=== PATIENT | male | born 1965 | race Two or more races ===

== ENCOUNTER → 2016-10-20 | Outpatient (CLI) | payer OTHER ==
[~2016-10-20] MED LIST: IOPAMIDOL (ISOVUE-300) 100 ML BTL IV ONE
== END ==
LOC: FIMAGING 11:49
PROVIDERS: ATTEND Physician Assistant
DX: R31.0 Gross hematuria (principal); K40.90 Unilateral inguinal hernia, without obstruction or gangrene, not specified as recurrent
CPT/HCPCS: Q9967

== ENCOUNTER 2018-11-26 14:18 | Emergency (ER) | payer OTHER ==
[2018-11-26 14:29] VITALS: BP 120/88
[2018-11-26] MEDS ORDERED: CEPHALEXIN 500 MG CAP PO ONE (14:35)
--- NOTE | 2018-11-26 14:35 | EDPHY ---
H & P Time Seen by Provider: 11/26/18 14:20 HPI/ROS: CHIEF COMPLAINT: Right 4th digit crush injury HISTORY OF PRESENT ILLNESS: 53-year-old [id number] male with up-to- date tetanus, immunocompetent, complaining of crush injury to his right 4th digit distal phalanx when he was moving landscaping rocks and a rock crushed said digit. He is complaining of pain with palpation and range of motion. He complains of new swan neck deformity to digit. Occurred shortly prior to arrival PRIMARY CARE PROVIDER: REVIEW OF SYSTEMS: 10 systems reviewed and are negative with exception of illness mentioned in the history of present illness PHYSICAL EXAM (Prior to examination, patient consented to physical exam, hands were washed and my usual and customary physical exam procedures followed) 1) GENERAL: Well-developed, well-nourished, alert and oriented. Appears to be in no acute distress. 2) HEAD: Normocephalic 3) HEENT: sclera anicteric 4) LUNGS: Breathing comfortably. 5) SKIN: Right 4th digit distal phalanx laceration measuring 1.5 cm. 6) MUSCULOSKELETAL: [place] neck Deformity noted. This is new per the patient. 7) NEUROLOGIC: Decreased 2 point sensation distal to the injury Smoking Status: Former smoker Constitutional: Initial Vital Signs Temperature (C) 37.1 C 11/26/18 14:25 Heart Rate 90 11/26/18 14:25 Respiratory Rate 18 11/26/18 14:25 Blood Pressure 120/88 H 11/26/18 14:25 O2 Sat (%) 94 11/26/18 14:25 O2 Delivery Mode Room Air Allergies/Adverse Reactions: tamsulosin HCl [From Flomax] Allergy (Verified 11/26/18 14:24) Home Medications: Medication Instructions Recorded Cephalexin [Keflex] 500 mg PO TID 5 Days cap 11/26/18 MDM/Departure - MDM Imaging Results: Imaging Impressions Finger X-Ray 11/26/18 14:35 Impression: Soft tissue injury, with no acute osseous abnormality. Images reviewed myself Procedures: Procedure: Laceration repair. I explained the indications, risks and benefits for both laceration repair and anesthetic administration. Verbal consent was obtained from the patient. The laceration on the right 4th digit was anesthetized using 0.5% bupivicaine without epinephrine digital nerve block. After anesthetic administered the patient was observed for a period of time and had no apparent adverse effects. The wound was cleaned, prepped, draped in normal sterile fashion and explored to its base. No foreign body seen, no foreign bodies palpated. The wound was repaired with 5 simple interrupted 5 O Prolene sutures. The wound repair was simple. The procedure was performed by myself. Patient has been informed that scarring will occur, although efforts have been made to minimize this. Procedure: Splint In the lumen foam splint was applied by ER plumbing service technician. After application of the splint I returned and re-examined the patient. The splint was adequately immobilizing the joint and distal to the splint the patient's circulation and sensation were intact. Patient shows no signs of compartment syndrome. Was given orthopedic precautions. Medications Given: Discontinued Medications Cephalexin HCl (Keflex) 500 mg PO EDNOW ONE PRN Reason: Protocol Stop: 11/26/18 14:36 Last Admin: 11/26/18 15:00 Dose: 500 mg ED Course/Re-evaluation: Patient laceration was primarily closed in the ER. Started on prophylactic antibiotics. Noted evidence of definitive open fracture. No signs of infection. Negative kanavel. He has a new swan neck deformity to the affected digit. I recommended follow-up with Hand surgery. He has been splinted. See procedure note. Given referral information. - Depart Disposition: Home, Routine, Self-Care Clinical Impression: Crushing injury of right ring finger, initial encounter, [place]-neck deformity of finger of right hand Condition: Good Instructions: Cephalexin (By mouth), Care For Your Stitches (ED), Laceration ( ED) Additional Instructions: Return to the ER if you develop redness, swelling, discharge, warmth to the wound, red streaks going up your arm, or any other symptoms that concern you. Regresar a la daniel de Emergen[facility] si leigh ann hare, susano u calor a lawler mano, micah villa subiendo lawler brazo u otra sintoma que le preocupa. LLamar al especialita de mano el es a las 8:00am para fatemeh el lunes. Stand Alone Forms: Work Excuse Prescriptions: Cephalexin [Keflex] 500 mg PO TID 5 Days cap Referrals: Jonathan Stroud MD [Medical Doctor] - 2-3 days, call for appt. (Dr. Stroud is a hand surgeon) Print Language: Trinidadian
== END 2018-11-26 15:34 | disposition home or self-care (01) ==
PROC: 0HQFXZZ Repair Right Hand Skin, External Approach (ICD-10-PCS; principal; 2018-11-26)
DX: S61.214A Laceration without foreign body of right ring finger without damage to nail, initial encounter (principal); W23.1XXA Caught, crushed, jammed, or pinched between stationary objects, initial encounter; Y93.H2 Activity, gardening and landscaping
CPT/HCPCS: L3925